=== PATIENT | male | born 1950 | race Caucasian/White ===

== ENCOUNTER 2019-04-25 19:21 | Inpatient (IN) | payer MEDICARE, MEDICAID ==
[~2019-04-25] VITALS: Ht 170.2 cm; Wt 80.8 kg
[2019-04-25] MEDS ORDERED: SODIUM CHLORIDE 0.9% 1000ML BAG (SEPSIS BOLUS) IV ONE (20:00)
[2019-04-25] MEDS ORDERED: PIPERACILLIN/TAZ 3.375G PREMIX 50 ML IV ONE (20:00)
[2019-04-25 20:35] LABS: HEMATOCRIT. 29.4 % (42.0-52.0); HEMOGLOBIN. 10.1 g/dL (14.0-18.0); MEAN CORPUSCULAR HEMOGLOBIN 32.1 pg (28.0-32.0); MEAN CORPUSCULAR VOLUME 93.5 fL (80.0-94.0); MEAN PLATELET VOLUME 7.7 fl (7.4-10.4); PLATELET 483 x1000/uL (130-400); RED BLOOD CELL COUNT 3.14 mill/uL (4.7-6.1); RED CELL DISTRIBUTION WIDTH 14.7 % (11.6-14.6)
[2019-04-25 20:41] LABS: INR 1.2; PROTHROMBIN TIME 12.7 sec (9.6-11.0)
[2019-04-25 20:43] LABS: CHLORIDE 114 mEq/L (98-107)
[2019-04-25 21:20] LABS: PLATELET ESTIMATE INCREASED
[2019-04-25 23:09] LABS: CLARITY URINE TURBID (CLEAR); COLOR URINE ORANGE (YELLOW); KETONES URINE NEGATIVE (NEGATIVE); LEUKOCYTE ESTERASE URINE 3+ (NEGATIVE); NITRITE URINE NEGATIVE (NEGATIVE); OCCULT BLOOD URINE 3+ (NEGATIVE); PROTEIN URINE 2+ (NEGATIVE); SPECIFIC GRAVITY URINE 1.012 (1.005-1.030)
[2019-04-25 23:47] VITALS: BP 118/65
[2019-04-26] VITALS (11 sets, daily range): BP systolic 107–130; BP diastolic 62–83
[2019-04-26] MEDS ORDERED: DEXT 5%/0.9% NACL 1,000 ML IV SCH (04:45)
[2019-04-26] MEDS ORDERED: DEXTROSE 50% WATER 50ML SYRINGE IV PRN ×2 (06:45)
[2019-04-26] MEDS: BLOOD SUGAR DIAGNOSTIC STRIP TEST SCH ×4 (07:30→21:00)
[2019-04-26] MEDS ORDERED: APIX5TAB MT (08:19)
[2019-04-26] MEDS ORDERED: LISI-186 MT (08:19)
[2019-04-26] MEDS ORDERED: OLOP5DRO14 EACHEYE (08:19)
[2019-04-26] MEDS ORDERED: METF500S7 PO (08:19)
[2019-04-26] MEDS ORDERED: METO-539 MT (08:19)
[2019-04-26] MEDS ORDERED: ATOR40TA70 MT (08:19)
[2019-04-26] MEDS ORDERED: GABA-531 MT (08:19)
[2019-04-26] MEDS ORDERED: TAMS-11 PO (08:19)
[2019-04-26] MEDS ORDERED: SERT20OR6 PO (08:19)
[2019-04-26] MEDS ORDERED: TOBR5DRO2 EACHEYE (08:19)
[2019-04-26] MEDS ORDERED: AMLO10TA80 MT (08:19)
[2019-04-26] MEDS ORDERED: VANCOMYCIN 1250MG in DEXTROSE 5% WATER 250ML IV SCH (09:00)
[2019-04-26] MEDS: PIPERACILLIN/TAZOBACTAM 2.25 G in DEXTROSE 5% WATER 50 ML IV SCH ×2 (09:20→18:09)
[2019-04-26] MEDS: ENOXAPARIN 30MG/0.3ML SYR SUBCUT SCH (09:22)
[2019-04-26] MEDS: INSULIN LISPRO 100 UNITS/ML SUBCUT SCH ×4 (09:26→23:52)
[2019-04-26 10:32] LABS: HEMOGLOBIN. 10.2 g/dL (14.0-18.0); MEAN CORPUSCULAR HEMOGLOBIN 31.7 pg (28.0-32.0); MEAN CORPUSCULAR VOLUME 93.9 fL (80.0-94.0); PLATELET 448 x1000/uL (130-400); RED CELL DISTRIBUTION WIDTH 14.7 % (11.6-14.6)
[2019-04-26 11:00] LABS: PLATELET ESTIMATE INCREASED
[2019-04-26] MEDS: DEXT 5%/0.45% NACL 1000ML 1,000 ML IV SCH ×2 (11:45→19:00)
[2019-04-26 13:10] LABS: CREATINE KINASE 140 IU/L (39-308)
[2019-04-26] MEDS ORDERED: PIPERACILLIN/TAZOBACTAM 3.375 G/VIAL IV SCH (14:00)
[2019-04-27] VITALS (12 sets, daily range): BP systolic 100–124; BP diastolic 53–74
[2019-04-27] MEDS: PIPERACILLIN/TAZOBACTAM 2.25 G in DEXTROSE 5% WATER 50 ML IV SCH ×3 (00:03→15:48)
[2019-04-27] MEDS: DEXT 5%/0.45% NACL 1000ML 1,000 ML IV SCH ×3 (00:06→17:31)
[2019-04-27] MEDS: BLOOD SUGAR DIAGNOSTIC STRIP TEST SCH ×5 (06:37→21:00)
[2019-04-27] MEDS: ENOXAPARIN 30MG/0.3ML SYR SUBCUT SCH (06:46)
[2019-04-27] MEDS ORDERED: SODIUM BICARBONATE 8.4% 1 MEQ/ML 50ML SYR IV NR (10:30)
[2019-04-27 10:32] LABS: BG BASE EXCESS -10.1 mmol/L (-2.0-2.0); BG CARBOXYHEMOGLOBIN 0.1 % (0.5-1.5); BG HCO3 ACT 13.7 mmol/L (22.0-26.0); BG METHEMOGLOBIN 0.3 % (0.0-1.5); BG OXYHEMOGLOBIN 96.6 % (94.0-97.0); BG PCO2 24.2 mmHg (35.0-45.0); BG PO2 96.1 mmHg (75.0-100.0); BG SAMPLE SITE RIGHT RADIAL; BG TOTAL HEMOGLOBIN 10.1 g/dL (12.0-18.0); BG VENT MODE NASAL CANNULA
[2019-04-27] MEDS: ACETAMINOPHEN 650MG/20.3ML UDC PO PRN (11:13)
[2019-04-27] MEDS: INSULIN LISPRO 100 UNITS/ML SUBCUT SCH ×3 (11:22→22:17)
[2019-04-27] MEDS ORDERED: GENTAMICIN SULFATE IV SCH (12:00)
[2019-04-27] MEDS ORDERED: WATER IV SCH (12:00)
[2019-04-27] MEDS ORDERED: DEXT 5% IV SCH (12:00)
[2019-04-27] MEDS ORDERED: VANCOMYCIN 500 MG PREMIX 100 ML IV NR (12:00)
[2019-04-27] MEDS: CITRIC ACID/SODIUM CITRATE SOLN 30ML UDC PO SCH ×2 (13:04→17:04)
[2019-04-28] VITALS (11 sets, daily range): BP systolic 99–139; BP diastolic 54–65
[2019-04-28] MEDS: PIPERACILLIN/TAZOBACTAM 2.25 G in DEXTROSE 5% WATER 50 ML IV SCH ×4 (01:31→23:47)
[2019-04-28] MEDS: DEXT 5%/0.45% NACL 1000ML 1,000 ML IV SCH (01:32)
[2019-04-28] MEDS: ENOXAPARIN 30MG/0.3ML SYR SUBCUT SCH (06:54)
[2019-04-28 07:09] LABS: BASOPHILS % 0.3 % (0.0-2.0); EOSINOPHILS % 1.9 % (0.0-5.0); HEMATOCRIT. 26.9 % (42.0-52.0); HEMOGLOBIN. 9.3 g/dL (14.0-18.0); MEAN CORPUSCULAR HEMOGLOBIN 32.1 pg (28.0-32.0); MEAN CORPUSCULAR VOLUME 93.2 fL (80.0-94.0); MEAN PLATELET VOLUME 8.4 fl (7.4-10.4); MONOCYTES % 2.7 % (2.0-8.0); NEUTROPHILS % 86.1 % (40.0-76.0); PLATELET 381 x1000/uL (130-400); RED BLOOD CELL COUNT 2.89 mill/uL (4.7-6.1); RED CELL DISTRIBUTION WIDTH 14.3 % (11.6-14.6)
[2019-04-28] MEDS: BLOOD SUGAR DIAGNOSTIC STRIP TEST SCH ×4 (07:55→21:45)
[2019-04-28] MEDS: CITRIC ACID/SODIUM CITRATE SOLN 30ML UDC PO SCH ×3 (08:45→17:56)
[2019-04-28] MEDS: INSULIN LISPRO 100 UNITS/ML SUBCUT SCH ×4 (08:47→21:57)
[2019-04-28] MEDS: INSULIN GLARGINE UD 100 UNITS/ML SYR SUBCUT SCH (10:21)
[2019-04-28 15:06] LABS: ANTI-NUCLEAR ANTIBODIES DIRECT Negative (Negative)
[2019-04-29] VITALS (12 sets, daily range): BP systolic 102–123; BP diastolic 57–92
[2019-04-29] MEDS: ENOXAPARIN 30MG/0.3ML SYR SUBCUT SCH (06:53)
[2019-04-29] MEDS: INSULIN LISPRO 100 UNITS/ML SUBCUT SCH ×4 (07:30→21:15)
[2019-04-29 07:31] LABS: BASOPHILS % 0.4 % (0.0-2.0); EOSINOPHILS % 2.6 % (0.0-5.0); LYMPHOCYTES % 11.1 % (20.0-50.0); MEAN CORPUSCULAR HEMOGLOBIN 32.1 pg (28.0-32.0); MEAN CORPUSCULAR VOLUME 93.1 fL (80.0-94.0); MEAN PLATELET VOLUME 8.3 fl (7.4-10.4); MONOCYTES % 2.5 % (2.0-8.0); NEUTROPHILS % 83.4 % (40.0-76.0); PLATELET 407 x1000/uL (130-400); RED BLOOD CELL COUNT 3.11 mill/uL (4.7-6.1); RED CELL DISTRIBUTION WIDTH 14.4 % (11.6-14.6)
[2019-04-29] MEDS: BLOOD SUGAR DIAGNOSTIC STRIP TEST SCH ×4 (08:14→21:16)
[2019-04-29] MEDS: PIPERACILLIN/TAZOBACTAM 2.25 G in DEXTROSE 5% WATER 50 ML IV SCH ×2 (08:15→19:09)
[2019-04-29] MEDS: CITRIC ACID/SODIUM CITRATE SOLN 30ML UDC PO SCH ×3 (08:15→19:05)
[2019-04-29] MEDS: ZINC SULFATE 220 MG ( 50 ) CAPSULE PO SCH (08:15)
[2019-04-29] MEDS: ASCORBIC ACID 500 MG TABLET PO SCH (08:15)
[2019-04-29] MEDS ORDERED: POTASSIUM CHLORIDE 20MEQ/PACKET PO SCH (10:15)
[2019-04-29] MEDS: MORPHINE SULFATE 2 MG/ML CPJ (NOT FOR IM USE) IV PRN (10:35)
[2019-04-29] MEDS: INSULIN GLARGINE UD 100 UNITS/ML SYR SUBCUT SCH (10:38)
[2019-04-29 11:49] LABS: CREATINE KINASE 49 IU/L (39-308)
[2019-04-30] VITALS (12 sets, daily range): BP systolic 100–138; BP diastolic 54–73
[2019-04-30] MEDS: PIPERACILLIN/TAZOBACTAM 2.25 G in DEXTROSE 5% WATER 50 ML IV SCH ×3 (00:30→16:13)
[2019-04-30] MEDS: ENOXAPARIN 30MG/0.3ML SYR SUBCUT SCH (06:23)
[2019-04-30 07:06] LABS: BASOPHILS % 0.4 % (0.0-2.0); HEMATOCRIT. 26.9 % (42.0-52.0); HEMOGLOBIN. 9.4 g/dL (14.0-18.0); LYMPHOCYTES % 14.5 % (20.0-50.0); MEAN CORPUSCULAR HEMOGLOBIN 32.4 pg (28.0-32.0); MEAN CORPUSCULAR VOLUME 92.3 fL (80.0-94.0); MEAN PLATELET VOLUME 8.1 fl (7.4-10.4); NEUTROPHILS % 79.1 % (40.0-76.0); PLATELET 413 x1000/uL (130-400); RED BLOOD CELL COUNT 2.92 mill/uL (4.7-6.1); RED CELL DISTRIBUTION WIDTH 13.9 % (11.6-14.6)
[2019-04-30] MEDS: INSULIN LISPRO 100 UNITS/ML SUBCUT SCH ×4 (07:30→22:09)
[2019-04-30] MEDS: BLOOD SUGAR DIAGNOSTIC STRIP TEST SCH ×4 (07:58→21:09)
[2019-04-30] MEDS: ASCORBIC ACID 500 MG TABLET PO SCH (10:12)
[2019-04-30] MEDS: CITRIC ACID/SODIUM CITRATE SOLN 30ML UDC PO SCH ×3 (10:12→17:34)
[2019-04-30] MEDS: ZINC SULFATE 220 MG ( 50 ) CAPSULE PO SCH (10:12)
[2019-04-30] MEDS: INSULIN GLARGINE UD 100 UNITS/ML SYR SUBCUT SCH (10:13)
[2019-04-30] MEDS ORDERED: POTASSIUM CHLORIDE 20MEQ/PACKET PO NR (11:30)
[2019-05-01] VITALS (12 sets, daily range): BP systolic 116–154; BP diastolic 66–91
[2019-05-01] MEDS: PIPERACILLIN/TAZOBACTAM 2.25 G in DEXTROSE 5% WATER 50 ML IV SCH ×3 (00:03→18:36)
[2019-05-01] MEDS: MORPHINE SULFATE 2 MG/ML CPJ (NOT FOR IM USE) IV PRN (02:09)
[2019-05-01 06:55] LABS: BASOPHILS % 0.4 % (0.0-2.0); EOSINOPHILS % 2.9 % (0.0-5.0); HEMATOCRIT. 27.9 % (42.0-52.0); HEMOGLOBIN. 9.7 g/dL (14.0-18.0); LYMPHOCYTES % 16.1 % (20.0-50.0); MEAN CORPUSCULAR HEMOGLOBIN 31.9 pg (28.0-32.0); MEAN CORPUSCULAR VOLUME 91.9 fL (80.0-94.0); MEAN PLATELET VOLUME 7.8 fl (7.4-10.4); MONOCYTES % 3.1 % (2.0-8.0); NEUTROPHILS % 77.5 % (40.0-76.0); PLATELET 454 x1000/uL (130-400); RED BLOOD CELL COUNT 3.03 mill/uL (4.7-6.1); RED CELL DISTRIBUTION WIDTH 13.9 % (11.6-14.6)
[2019-05-01] MEDS: INSULIN LISPRO 100 UNITS/ML SUBCUT SCH ×4 (07:30→20:34)
[2019-05-01] MEDS: BLOOD SUGAR DIAGNOSTIC STRIP TEST SCH ×4 (07:30→20:35)
[2019-05-01] MEDS: CITRIC ACID/SODIUM CITRATE SOLN 30ML UDC PO SCH ×3 (08:33→18:37)
[2019-05-01] MEDS: ENOXAPARIN 30MG/0.3ML SYR SUBCUT SCH (08:34)
[2019-05-01] MEDS: ZINC SULFATE 220 MG ( 50 ) CAPSULE PO SCH (08:34)
[2019-05-01] MEDS: ASCORBIC ACID 500 MG TABLET PO SCH (08:34)
[2019-05-01] MEDS: INSULIN GLARGINE UD 100 UNITS/ML SYR SUBCUT SCH (10:15)
[2019-05-01] MEDS: ACETAMINOPHEN 650MG/20.3ML UDC PO PRN (22:18)
[2019-05-02] VITALS (10 sets, daily range): BP systolic 141–157; BP diastolic 55–91
[2019-05-02] MEDS: PIPERACILLIN/TAZOBACTAM 2.25 G in DEXTROSE 5% WATER 50 ML IV SCH ×2 (00:06→08:10)
[2019-05-02 06:53] LABS: BASOPHILS % 0.5 % (0.0-2.0); EOSINOPHILS % 1.7 % (0.0-5.0); HEMATOCRIT. 25.2 % (42.0-52.0); HEMOGLOBIN. 8.9 g/dL (14.0-18.0); LYMPHOCYTES % 16.1 % (20.0-50.0); MEAN CORPUSCULAR HEMOGLOBIN 32.4 pg (28.0-32.0); MEAN CORPUSCULAR VOLUME 91.7 fL (80.0-94.0); MEAN PLATELET VOLUME 7.5 fl (7.4-10.4); MONOCYTES % 3.2 % (2.0-8.0); NEUTROPHILS % 78.5 % (40.0-76.0); PLATELET 388 x1000/uL (130-400); RED BLOOD CELL COUNT 2.75 mill/uL (4.7-6.1); RED CELL DISTRIBUTION WIDTH 13.8 % (11.6-14.6)
[2019-05-02] MEDS: INSULIN LISPRO 100 UNITS/ML SUBCUT SCH ×2 (07:30→12:53)
[2019-05-02] MEDS: BLOOD SUGAR DIAGNOSTIC STRIP TEST SCH ×2 (07:43→12:46)
[2019-05-02] MEDS: ENOXAPARIN 30MG/0.3ML SYR SUBCUT SCH (08:10)
[2019-05-02] MEDS: ASCORBIC ACID 500 MG TABLET PO SCH (08:10)
[2019-05-02] MEDS: CITRIC ACID/SODIUM CITRATE SOLN 30ML UDC PO SCH ×2 (08:10→12:53)
[2019-05-02] MEDS: ZINC SULFATE 220 MG ( 50 ) CAPSULE PO SCH (08:10)
[2019-05-02] MEDS: INSULIN GLARGINE UD 100 UNITS/ML SYR SUBCUT SCH (11:01)
== END 2019-05-02 19:30 | disposition home health service (06) | DRG 698 ==
LOC: ER 19:21 → 5EST 22:23 → EDBEDREQTM 22:26 → EDBEDREQSVC 22:26 → EDBEDREQ 22:26 → ENRESERV 22:37
PROVIDERS: ADMIT Internal Medicine; ATTEND Internal Medicine
PROC: 02HV33Z Insertion of Infusion Device into Superior Vena Cava, Percutaneous Approach (ICD-10-PCS; principal; 2019-04-26)
PROC: B548ZZA Ultrasonography of Superior Vena Cava, Guidance (ICD-10-PCS; 2019-04-26)
DX: T83.518A Infection and inflammatory reaction due to other urinary catheter, initial encounter (principal); A41.59 Other Gram-negative sepsis; N17.0 Acute kidney failure with tubular necrosis; E43 Unspecified severe protein-calorie malnutrition; E87.1 Hypo-osmolality and hyponatremia; G93.40 Encephalopathy, unspecified; N39.0 Urinary tract infection, site not specified; E87.2 Acidosis; I69.954 Hemiplegia and hemiparesis following unspecified cerebrovascular disease affecting left non-dominant side; D64.9 Anemia, unspecified; N40.1 Benign prostatic hyperplasia with lower urinary tract symptoms; F03.90 Unspecified dementia, unspecified severity, without behavioral disturbance, psychotic disturbance, mood disturbance, and anxiety; E78.5 Hyperlipidemia, unspecified; L89.516 Pressure-induced deep tissue damage of right ankle; L89.626 Pressure-induced deep tissue damage of left heel; N18.9 Chronic kidney disease, unspecified; E11.22 Type 2 diabetes mellitus with diabetic chronic kidney disease; I12.9 Hypertensive chronic kidney disease with stage 1 through stage 4 chronic kidney disease, or unspecified chronic kidney disease; Z87.440 Personal history of urinary (tract) infections; Z68.27 Body mass index [BMI] 27.0-27.9, adult; Y82.8 Other medical devices associated with adverse incidents; Y92.89 Other specified places as the place of occurrence of the external cause
CPT/HCPCS: 36415; 36600; 71045; 76770; 76937; 80048; 80053; 80202; 81003; 82375; 82550; 82575; 82805; 82962; 83036; 83605; 83735; 83880; 84100; 84145; 84484; 85025; 86038; 86160; 87077; 87186; 87804; 92610; 93005; 93970; 96365; 97162; 97530; 99291; C1725; J1580; J1650; J1815; J2270; J2543; J3370; J3490; J7030; J7042; J7060